=== PATIENT | female | born 1965 | race Caucasian/White ===

== ENCOUNTER → 2024-06-12 | Day surgery (SDC) | payer BC ==
--- NOTE | 2024-06-12 12:07 | RAD REPORT ---
Exam:Breast Core BX w/US Guidance CLINICAL HISTORY: Left breast mass TECHNIQUE: The risks, benefits and alternatives to procedure were explained to the patient and informed consent obtained. Prior ultrasound was reviewed. Skin and deeper tissues were anesthetized with lidocaine. Under sonographic guidance two 14-gauge vacuum-assisted core biopsies of the left breast mass were ob tained.. The mass is in approximately the 5:30 position. The specimens were given to pathology. Subsequently a localizing clip was placed into the mass. Pressure was applied to the biopsy site. Patient experienced immediate complication. IMPRESSION: Core biopsies of the left breast mass
== END ==
LOC: DS 10:41
PROVIDERS: ATTEND Nurse Practitioner Women's Health
DX: N60.32 Fibrosclerosis of left breast (principal)
CPT/HCPCS: 19083; 88305

== ENCOUNTER 2024-06-18 10:57 | Day surgery (SDC) | payer BC ==
[2024-06-15 13:56] LABS: Absolute Basophils 0.1 K/uL (0-0.5); Absolute Eosinophils 0.2 K/uL (0-0.5); Absolute Lymphocytes (CBC) 1.4 K/uL (0.7-4.9); Absolute Monocytes 0.5 K/uL (0.1-1.3); Absolute Neutrophil 6.5 K/uL (1.8-8.0); Eosinophils % 2.3 % (0-4.4); Hematocrit 44.5 % (36.0-45.0); Hemoglobin 15.1 g/dL (12.0-15.0); Lymphocytes % 16.4 % (15.3-44.8); MCH 31.2 pg (27.0-35.0); MCV 91.7 fL (80-100); MPV 9.9 fL (7.6-11.3); Monocytes % 5.5 % (3.3-12.3); Neutrophils % 74.8 % (41.7-73.7); Platelets 219 thou/uL (152-406); RBC Red Blood Cell Count 4.86 M/uL (3.86-4.86); Red Cell Distribution Width 12.9 % (12.1-15.2)
[2024-06-15 14:09] LABS: Anion Gap 6.9 mEq/L (5.0-15.0); Potassium 3.9 mEq/L (3.5-5.1)
[2024-06-18] MEDS: Ringers Lactate 1,000 ML IV ONE (11:15)
[2024-06-18] MEDS ORDERED: LIDOCAINE 1% MPF 30 ML VIAL ONE (11:48)
[2024-06-18] MEDS ORDERED: propofoL 200 MG/20 ML VIAL IV ONE (11:48)
[2024-06-18] MEDS ORDERED: ALBUTEROL INHALER 200 PUFF/6.7 GM IH ONE (11:56)
[2024-06-18 13:42] VITALS: TEMP 98.6
[2024-06-18 13:43] VITALS: BP 132/62; O2SAT 99
--- NOTE | 2024-06-19 12:27 | EKG ---
Test Date: 2024-06-15 Test Time: 13:34:09 Mobile Paramedical Examiner: BRENDA MEASUREMENT RESULTS: Intervals: Rate: 69 AK: 144 QRSD: 94 QT: 384 QTc: 411 [place]: P: 67 AK: 144 QRS: 72 T: 80 INTERPRETIVE STATEMENTS: Normal sinus rhythm Normal ECG No previous ECG available for comparison Electronically Signed On 06-19-24 12:19:30 DOCUMENT CONTROL ASSISTANT by Christian Grider
== END 2024-06-18 13:35 | disposition home or self-care (01) ==
LOC: OR 10:57
PROVIDERS: ATTEND Surgery
PROC: 0DBN8ZX Excision of Sigmoid Colon, Via Natural or Artificial Opening Endoscopic, Diagnostic (ICD-10-PCS; 2024-06-18)
PROC: 0DBH8ZX Excision of Cecum, Via Natural or Artificial Opening Endoscopic, Diagnostic (ICD-10-PCS; principal; 2024-06-18 12:45)
DX: Z12.11 Encounter for screening for malignant neoplasm of colon (principal); K64.8 Other hemorrhoids; K57.30 Diverticulosis of large intestine without perforation or abscess without bleeding; K63.5 Polyp of colon
CPT/HCPCS: 93005; 85025; 80048; 36415; 88305; 45380; J2704; J2003; J7120